=== PATIENT | male | born 1940 | race Caucasian/White ===

== ENCOUNTER 2021-07-06 19:17 | Outpatient (NON) | payer OTHER, SELFPAY ==
[2021-07-06 19:31] LABS: Add Urine Microscopic? NO; Appearance Urine Clear (Clear); Bilirubin Urine Negative (Negative); Blood Urine Negative (Negative); Color Urine Light Yellow (Yellow); Glucose Urine UA Negative (Negative); Ketones Urine Negative (Negative); Leukocyte Esterase Ur Negative LEU/UL (Negative); Nitrate Urine Negative (Negative); Protein Urine Negative (Negative); Urobilinogen Urine 0.2 mg/dL (0.2-1.0)
== END 2021-07-06 19:18 | disposition home or self-care (01) ==
LOC: CHSLAB 19:21
PROVIDERS: Nurse Practitioner Family; PCP Family Medicine; Visit Provider Family Medicine
DX: R30.0 Dysuria (principal)
CPT/HCPCS: 81003

== ENCOUNTER 2023-02-03 18:04 | Inpatient (IN) | payer OTHER, SELFPAY ==
[2023-02-03] VITALS (11 sets, daily range): BP systolic 70–138; BP diastolic 43–68; PULSE 72–149; RESP 20–35; TEMP 36.7–38.5; O2SAT 82–100; BMI 19.1
--- NOTE | ~2023-02-03 | XR_ITS ---
Portable chest x-ray Comparison: 02/03/2023 Clinical History: Aspiration Findings: There is bibasilar airspace disease. Probable minimal left pleural effusion. Cardiomedias tinal silhouette is stable. Bones and soft tissues are unremarkable. Impression: Bibasilar airspace consolidation. Correlate for atelectasis versus pneumonia. Probable minimal left pleural effusion. Reviewed, dictated and finalized at [facility]. Impression: Bibasilar airspace consolidation. Correlate for atelectasis versus pneumonia. Probable minimal left pleural effusion.
--- NOTE | ~2023-02-03 | XR_ITS ---
Portable chest x-ray Comparison: 06/30/2009 Clinical History: Pneumonia Findings: Lungs are clear, without focal consolidation or pleural effusion. Cardiomediastinal silho uette is stable. Bones and soft tissues are unremarkable. Impression: Clear lungs. Reviewed, dictated and finalized at location . Impression: Clear lungs.
--- NOTE | 2023-02-03 18:05 | ECG_ITS ---
Measurements Intervals [place] Rate: 141 P: 76 SD: 144 QRS: -26 QRSD: 94 T: 92 QT: 328 QTc: 503 Interpretive Statements SINUS OR ECTOPIC ATRIAL TACHYCARDIA LOW QRS VOLTAGE IN PRECORDIAL LEADS NONSPECIFIC ST & T-WAVE ABNORMALITY- DIFFUSE LEADS BASELINE ARTIFACT- I, II, III, AVR, AVL, AVF, V2-V6 ABNORMAL ECG NO PREVIOUS ECG AVAILABLE FOR COMPARISON Electronically Signed On 02-03-2023 18:41:24 CDT by Gregory Chavez D.O.
[2023-02-03] MEDS: IPRATROPIUM 0.5 MG/ALBUTEROL SULFATE 2.5 MG AMPUL.NEB 3 ML INHALATION (18:20)
--- NOTE | 2023-02-03 18:21 | ED.SOB ---
HPI - SOB/Dyspnea General Chief Complaint: Upper Respiratory Infection Stated Complaint: SOB Time Seen by Provider: 02/03/23 18:09 Source: patient Mode of arrival: ambulatory Limitations: no limitations History of Present Illness HPI Narrative: 82-year-old male, half-way resident a history of cognitive impairment, mixed dyslipidemia, OCD presents to the ER via EMS with -- fever since today morning -- gurgling respiration which developed after he had supper. Questionable aspiration. -- Patient is nonverbal. -- hypotensive -- hypoxia with oxygen saturation 75% which improved with supplemental oxygen. MD elicited complaint: shortness of breath Pertinent past history: congestive heart failure Onset (ago): day(s) ( Since this morning.) Context: choking/aspiration Timing: constant Severity: moderate Exacerbating factors: nothing and warm air Relieving factors: nothing Related Data Home oxygen amount: other ( 7 L) Home Medications Medication Instructions Recorded Confirmed acetaminophen 650 mg 650 mg PO .Q6hrs 05/04/21 02/03/23 tablet,extended release (Tylenol 8 Hour) Ocusoft Eyelid Cleansing Pads 02/03/23 02/03/23 atorvastatin 40 mg tablet 40 mg PO HS 02/03/23 02/03/23 azelastine 0.05 % eye drops 2 drp ophthalmic (eye) BID 02/03/23 02/03/23 clindamycin HCl 150 mg capsule 150 mg PO TID 02/03/23 02/03/23 famotidine 40 mg tablet 40 mg PO DAILY 02/03/23 02/03/23 melatonin 5 mg capsule 5 mg PO HS PRN insomnia 02/03/23 02/03/23 multivit with min-folic 1 tablet PO DAILY 02/03/23 02/03/23 acid-lutein 200 mcg-137.5 mcg chewable tablet (Adult Multivitamin (w-lutein)) polyvinyl alcohol-povidone 0.5 1 drp EACH EYE BID PRN Itching 02/03/23 02/03/23 %-0.6 % eye drops (Clear Eyes Natural Tears) tamsulosin 0.4 mg capsule 0.4 mg PO HS 02/03/23 02/03/23 Allergies Allergy/AdvReac Type Severity Reaction Status Date / Time No Known Allergies Allergy Verified 01/31/23 07:36 Review of Systems Review of Systems: ROS unobtainable: Yes unobtainable due to mental status Constitutional: Constitutional: Reports as per HPI, Reports no additional constitutional complaints and Reports fever(s) Eyes: Eyes: Reports as per HPI and Reports no additional eye complaints ENT: Reports system reviewed and no additional complaints, except as documented and Reports as per HPI Cardiovascular: Cardiovascular: Reports as per HPI and Reports no additional cardiovascular complaints Respiratory: Respiratory: Reports as per HPI, Reports chest congestion and Reports cough Gastrointestinal: Gastrointestinal: Reports as per HPI and Reports no additional gastrointestinal complaints Genitourinary: Genitourinary: Reports no additional male genitourinary complaints and Reports as per HPI Musculoskeletal: Musculoskeletal: Reports no additional musculoskeletal complaints and Reports as per HPI Integumentary/Breasts: Skin/Breast: Reports system reviewed and no additional complaints, except as docu and Reports as per HPI Psychiatric: Psychiatric: Reports no additional psychiatric complaints and Reports as per HPI Endocrine: Endocrine: Reports no additional endocrine complaints and Reports as per HPI Hematologic/Lymphatic: Hematologic/Lymphatic: Reports no additional hematologic/lymphatic complaints Allergic/Immunologic: Allergic/Immunologic: Reports no additional allergic/immunologic complaints and Reports as per HPI PMFSH Past Medical History Medical History Mixed hyperlipidemia OCD (obsessive compulsive disorder) Social History Social History Smoking status: Never smoker Exam Const: General: ill appearing Nutritional Appearance: well nourished Limitations: altered mental status HENMT: Head: normal to inspection Ears: external ears normal Face/Nose/Sinus: Normal external nose present Face and sinus: normal faci
[2023-02-03 19:08] LABS: Base Excess ABG -4.2 mmol/L (0-2); HCO3 ABG 24.5 mmol/L (23-29); Oxygen Content ABG 12.7 %vol (16.0-22.0); Oxygen Saturation ABG 75.9 % (95-97); Oxyhemoglobin 75.3 % (94-100); PCO2 ABG 63.3 mmHg (35-45); pH ABG 7.21 (7.35-7.45)
[2023-02-03 19:28] LABS: Hematocrit 37.3 % (37.0-46.0); Hemoglobin 12.4 g/dL (12.4-15.3); Mean Corpuscular HGB Conc 33.2 g/dL (32.0-36.0); Mean Corpuscular Hemoglobin 33.2 pg (27.0-31.0); Mean Corpuscular Volume 99.7 fL (78.0-102.0); Mean Platelet Volume 10.3 fl (8.7-11.0); Platelet Count Result 174 K/mm3 (150-420); Red Blood Count 3.74 M/mm3 (4.70-6.10); Red Cell Distribution Width 14.2 % (11.6-14.4)
[2023-02-03 19:31] LABS: Device NASAL CANNULA; Modified Allen's Test Pass; Site Drawn RIGHT RADIAL
[2023-02-03 19:35] LABS: Partial Thromboplastin Time 28.6 SEC (23.90-30.70); Prothrombin Time 11.3 Seconds (9.50-12.10)
[2023-02-03 19:44] LABS: Lactic Acid Reflex 4.5 mmol/L (0.4-2.0)
[2023-02-03 19:45] LABS: Alanine Aminotransferase 35 U/L (16-63); Albumin Level 3.2 g/dL (3.4-5.0); Alkaline Phosphatase 114 U/L (46-116); Anion Gap 10 mmol/L (8-16); Aspartate Amino Transferase 22 U/L (15-37); Blood Urea Nitrogen 27 mg/dL (7-18); Calcium 8.3 mg/dL (8.5-10.1); Carbon Dioxide 27 mmol/L (21-32); Chloride 106 mmol/L (98-108); Estimated CRCL calculation 33 ml/min; Estimated Glomerular Filt Rate > 60; Glucose 133 mg/dL (70-99); Lipase 32 U/L (16-77); NT Pro B Type Natriuretic Pept 655 pg/mL (0-450); Osmolality Calculated 303 mOsm/kg (285-295); Potassium 3.4 mmol/L (3.5-5.1); Sodium 143 mmol/L (136-145); Thyroid Stimulating Hormone 1.81 uIU/mL (0.36-3.74)
--- NOTE | 2023-02-03 19:48 | PC.NURSE ---
1914-report from denisse [place]. functional tester typewriters arrives to bedside. pt noted to be right lateral lying, audible gurgling, nasal cannula pulled down to chin, o2 sat 81%. o2 applied appropriately with active improvement to o2 sat. functional tester typewriters instructed pt to cough, pt follows commands and is suctioned with noting thick white/seaman sputum. pt noted to have soiled depend. pt cleaned, bedding changed, lights dimmed. pt appears less agitated and more comfortable. physician made aware.
[2023-02-03 19:59] LABS: Troponin I 117.6 ng/L (0.00-60.4)
[2023-02-03] MEDS: CEFEPIME 2 GM/NS 50 ML 2 GM/50 ML BAG IVPB (20:00)
[2023-02-03 20:18] LABS: Influenza A QL RT-PCR Negative (Negative); Influenza B QL RT-PCR Negative (Negative); RSV RNA, RT-PCR Negative (Negative); SARS-CoV-2 RNA PCR Negative (Negative)
[2023-02-03 20:34] LABS: Neutrophils Percent Manual 77 % (46-73); Total Cells Counted 100
[2023-02-03 20:35] LABS: Band Neutrophils Percent 6 % (0-6); Lymphocytes Absolute Manual 1.56 K/mm3 (1.1-4.5); Lymphocytes Percent Manual 6 % (18-44); Metamyelocytes Percent 1 %; Monocytes Percent Manual 10 % (3-9); Neutrophils Absolute Manual 21.58 K/mm3 (1.3-6.7); Platelet Estimate Adequate (Adequate); Schistocytes None Seen (NORMAL)
[2023-02-03] MEDS: VANCOMYCIN 1,250 MG/NS 250 ML 1,250 MG/250 ML BAG 166.67 MG IVPB (21:07)
[2023-02-03] MEDS: LACTATED RINGERS 1,000 ML 999 ML IV CONT (21:11)
--- NOTE | 2023-02-03 21:39 | P.PNCROSS_ITS ---
Event Note Event Note Event Note: Received notification from ER Physician that patient will be admitted for comfo rt care after NSTEMI, septic shock and likely aspiration. Admit orders/comfort care orders placed. Patient will be managed by ER Physician until 0700 on 02/04/2023 at which time I will take over and see patient in house.
--- NOTE | 2023-02-03 22:10 | ADMGEN ---
This patient, Enrique Benítez, was admitted to 2nd Floor Room 204-2. Patient/family oriented to hospital policies and general routines including ID bracelet, bed and alarms, visiting hours, pain management, procedures, bathroom and other care routines, personal items, smoking policy, room service/diet, and visiting hours. Information on how to activate the Rapid Response Team has been discussed. Patient/Family are encouraged to report perceived risks to care and to ask questions if they do not understand what they are told or what they should do.
--- NOTE | 2023-02-03 22:20 | PC.NURSE ---
PT noted to be anxious, with repeated verbalizations, A&Ox1 per baseline, 18g IV site to RFA was discontinued, pt pulled out during transfer from [facility] [place] to bed, new IV site initiated 22 gauge to [facility].
[2023-02-03 22:22] LABS: Reflex Lactic Acid Yes or No Add Lactic
--- NOTE | 2023-02-03 23:10 | PC.NURSE ---
Patient was admitted at 2210. Patient was anxious, and concerned about missing his eye drops and his pill that he has every night. Medication was ordered and given. Patient has IV morphine and IV Lorazepam available as needed.
[2023-02-03] MEDS: MORPHINE SULFATE (*CRX) 2 MG/ML INJ IV PUSH (23:24)
[2023-02-03] MEDS: LORazepam INJ (*CRX) 2 MG/ML VIAL IV PUSH (23:24)
[2023-02-03] MEDS: ARTIFICIAL TEARS OPHTH SOLN 15 ML BOTTLE 1 DROP EACH EYE (23:25)
[2023-02-03] MEDS: ACETAMINOPHEN 500 MG TABLET PO (23:27)
[2023-02-04] VITALS (9 sets, daily range): BP systolic 70–88; BP diastolic 44–54; PULSE 70–78; RESP 18–20; TEMP 36.6–37.4; O2SAT 90–94
[2023-02-04] MEDS: MORPHINE SULFATE (*CRX) 2 MG/ML INJ IV PUSH (03:06)
[2023-02-04] MEDS: ATROPINE SULFATE 1% OPHTH SOLN 5 ML BOTTLE 1 DROP SUBLINGUAL (03:08)
[2023-02-04] MEDS: LORazepam INJ (*CRX) 2 MG/ML VIAL IV PUSH ×2 (05:53→21:18)
[2023-02-04 06:57] LABS: Lactic Acid 2.2 mmol/L (0.4-2.0)
--- NOTE | 2023-02-04 07:32 | PM.IMHP ---
H&P: HPI History of Present Illness Date/Time: 02/04/23 07:32 Chief Complaint: aspiration Narrative: 82-year-old Male patient [facility] after he had an event at the dinner table resulting in aspiration of large amount of emesis with altered level of consciousness. Patient found to be altered in the emergency department nearly unconscious initially presenting with heart rate in the 140s and blood pressure in the 70s systolic. Patient was 75% saturations on room air. White blood cell count [id number] and lactic acid 4 5. Patient received IV fluids and IV antibiotics in the emergency department. Decision was made to admit after healthcare power of commonwealth attorney was contacted and patient made comfort care expected to pass away as result this event. Patient's troponin was noted to be elevated the ER. Additional labs and invasive interventions or withheld except reflex lactic acid had not been canceled. This was drawn this morning and was resulted at 2.2 showing a significant improvement. Patient did have to receive a single dose of morphine and a single dose of Ativan overnight due to significant agitation /anxiety. Nursing staff stated that patient actually ambulated around his a after being admitted from the ER. He was insistent on taking Tylenol and eyedrops that he takes every night. Patient's blood pressure remained low and patient remained on oxygen overnight. Large amount of suctioning was necessary to keep patient from gurgling respirations. atropine drops and later scopolamine patch applied for control of secretions. Review of Systems Review of Systems: ROS unobtainable: Yes unobtainable due to medical condition and unobtainable due to mental status PMF Past Medical History Medical History Mixed hyperlipidemia OCD (obsessive compulsive disorder) Social History Social History Smoking status: Never smoker Second hand tobacco smoke exposure: No Alcohol intake: never Substance use: never Substance use type: does not use Spiritual care concerns: No Meds Home Medications and Allergies Home Medications Medication Instructions Recorded Confirmed Type acetaminophen 650 mg 650 mg PO .Q6hrs 05/04/21 02/03/23 History tablet,extended release (Tylenol 8 Hour) Ocusoft Eyelid Cleansing Pads 02/03/23 02/03/23 History atorvastatin 40 mg tablet 40 mg PO HS 02/03/23 02/03/23 History azelastine 0.05 % eye drops 2 drp ophthalmic (eye) BID 02/03/23 02/03/23 History clindamycin HCl 150 mg capsule 150 mg PO TID 02/03/23 02/03/23 History famotidine 40 mg tablet 40 mg PO DAILY 02/03/23 02/03/23 History melatonin 5 mg capsule 5 mg PO HS PRN insomnia 02/03/23 02/03/23 History multivit with min-folic 1 tablet PO DAILY 02/03/23 02/03/23 History acid-lutein 200 mcg-137.5 mcg chewable tablet (Adult Multivitamin (w-lutein)) polyvinyl alcohol-povidone 0.5 1 drp EACH EYE BID PRN Itching 02/03/23 02/03/23 History %-0.6 % eye drops (Clear Eyes Natural Tears) tamsulosin 0.4 mg capsule 0.4 mg PO HS 02/03/23 02/03/23 History Allergies Allergy/AdvReac Type Severity Reaction Status Date / Time No Known Allergies Allergy Verified 01/31/23 07:36 Vital Signs Vital Signs - 24 hr 02/03/23 18:07 02/03/23 18:21 02/03/23 18:40 Temperature 38.5 C H Pulse Rate 120 H 133 H 149 H Respiratory Rate 31 H 35 H 29 H Blood Pressure 138/68 Pulse Oximetry 93 93 92 Oxygen Delivery Non-Rebreather Mask Oxygen Flow Rate 7 7 6 02/03/23 18:57 02/03/23 19:08 02/03/23 20:00 Temperature 38.0 C H Pulse Rate 148 H 140 H 130 H Respiratory Rate 30 H 22 H 24 H Blood Pressure 105/55 L 94/46 L Pulse Oximetry 82 L 91 96 Oxygen Delivery Nasal Cannula Nasal Cannula Nasal Cannula Oxygen Flow Rate 6 6 6 02/03/23 20:30 02/03/23 21:00 02/03/23 21:30 Temperature 36.7 C Pulse Rate 103 H
[2023-02-04] MEDS: SCOPOLAMINE 1.5 MG PATCH TRANSDERM (08:32)
--- NOTE | 2023-02-04 08:35 | PC.NURSE ---
Patient continues to be sedated and comfortable. Suction performed x 3 this shift already, with thick, seaman sputum obtained. Patient continues to have audible coarse lung sounds. Scopalamine patch applied behind R ear. No s/s distress noted.
--- NOTE | 2023-02-04 09:59 | PC.NURSE ---
Full bed bath and oral care administered to patient. Patient arousable to verbal, but is not responding verbally in return. No s/s distress noted. Linens changed. Patient positioned on R side with heels elevated for comfort.
--- NOTE | 2023-02-04 14:17 | PC.NURSE ---
Patient awake and opening his eyes. O2 decreased to 3L n/c and patient SPO2 at 96%. Patient calm and comfortable with no s/s distress at this time.
--- NOTE | 2023-02-04 15:03 | PC.NURSE ---
Patient alert to self per baseline. Patient awake and asking for food. Current diet is NPO, FI[employer]OTE[employer]IST to be on unit shortly. Will request diet change. Current SPO2 94% on 3L n/c.
[2023-02-04 16:40] LABS: Basophils Absolute Auto 0.07 K/mm3 (0.00-0.10); Basophils Percent Auto 0.4 % (0.0-1.0); Eosinophils Absolute Auto 0.02 K/mm3 (0.02-0.50); Eosinophils Percent Auto 0.1 % (1.0-6.0); Hemoglobin 10.9 g/dL (12.4-15.3); Immature Granulocyte Absolute 0.07 K/mm3 (0.00-0.00); Immature Granulocyte Percent A 0.4 % (0.0-0.0); Lymphocytes Absolute Auto 1.18 K/mm3 (1.10-4.50); Lymphocytes Percent Auto 6.4 % (18.0-42.0); Mean Corpuscular HGB Conc 34.1 g/dL (32.0-36.0); Mean Corpuscular Hemoglobin 33.5 pg (27.0-31.0); Mean Corpuscular Volume 98.5 fL (78.0-102.0); Mean Platelet Volume 9.9 fl (8.7-11.0); Monocytes Absolute Auto 2.13 K/mm3 (0.10-0.90); Monocytes Percent Auto 11.5 % (2.0-11.0); Neutrophils Absolute Auto 15.1 K/mm3 (1.7-7.2); Neutrophils Percent Auto 81.2 % (50.0-70.0); Platelet Count Result 143 K/mm3 (150-420); Red Blood Count 3.25 M/mm3 (4.70-6.10); Red Cell Distribution Width 14.6 % (11.6-14.4); White Blood Count 18.6 K/mm3 (4.8-10.8)
[2023-02-04 16:53] LABS: Alanine Aminotransferase 36 U/L (16-63); Albumin Level 2.7 g/dL (3.4-5.0); Alkaline Phosphatase 87 U/L (46-116); Anion Gap 7 mmol/L (8-16); Aspartate Amino Transferase 34 U/L (15-37); Bilirubin,Total 0.8 mg/dL (0.00-1.00); Blood Urea Nitrogen 44 mg/dL (7-18); Calcium 8.5 mg/dL (8.5-10.1); Carbon Dioxide 28 mmol/L (21-32); Chloride 107 mmol/L (98-108); Estimated CRCL calculation 36 ml/min; Estimated Glomerular Filt Rate > 60; Glucose 89 mg/dL (70-99); Osmolality Calculated 304 mOsm/kg (285-295); Potassium 4.3 mmol/L (3.5-5.1); Sodium 142 mmol/L (136-145); Total Protein 6.3 g/dL (6.4-8.2)
[2023-02-04 16:58] LABS: Troponin I 177.8 ng/L (0.00-60.4)
[2023-02-04] MEDS: metroNIDAZOLE 250 MG TABLET 500 MG PO ×2 (17:30→21:19)
[2023-02-04] MEDS: SODIUM CHLORIDE 0.9% IV 1,000 ML 75 ML IV CONT (17:30)
[2023-02-04] MEDS: CEFEPIME 2 GM/NS 50 ML 2 GM/50 ML BAG IVPB (17:30)
[2023-02-04] MEDS: IPRATROPIUM 0.5 MG/ALBUTEROL SULFATE 2.5 MG AMPUL.NEB 3 ML INHALATION ×2 (17:58→23:43)
[2023-02-04] MEDS: ARTIFICIAL TEARS OPHTH SOLN 15 ML BOTTLE 1 DROP EACH EYE (21:19)
[2023-02-04] MEDS: ATORVASTATIN 40 MG TABLET PO (21:19)
[2023-02-04] MEDS: MELATONIN 5 MG TABLET PO (21:19)
[2023-02-04] MEDS: TAMSULOSIN HCL 0.4 MG CAPSULE PO (21:19)
[2023-02-05] VITALS (12 sets, daily range): BP systolic 101–122; BP diastolic 52–64; PULSE 81–118; RESP 16–24; TEMP 36.6–37.3; O2SAT 92–96
[2023-02-05] MEDS: IPRATROPIUM 0.5 MG/ALBUTEROL SULFATE 2.5 MG AMPUL.NEB 3 ML INHALATION ×4 (05:14→23:19)
[2023-02-05 05:21] LABS: Basophils Absolute Auto 0.07 K/mm3 (0.00-0.10); Basophils Percent Auto 0.4 % (0.0-1.0); Eosinophils Absolute Auto 0.17 K/mm3 (0.02-0.50); Hemoglobin 10.4 g/dL (12.4-15.3); Immature Granulocyte Absolute 0.12 K/mm3 (0.00-0.00); Immature Granulocyte Percent A 0.7 % (0.0-0.0); Lymphocytes Absolute Auto 1.41 K/mm3 (1.10-4.50); Lymphocytes Percent Auto 8.6 % (18.0-42.0); Mean Corpuscular HGB Conc 33.5 g/dL (32.0-36.0); Mean Corpuscular Hemoglobin 32.9 pg (27.0-31.0); Mean Corpuscular Volume 98.1 fL (78.0-102.0); Mean Platelet Volume 9.7 fl (8.7-11.0); Monocytes Percent Auto 9.1 % (2.0-11.0); Neutrophils Absolute Auto 13.1 K/mm3 (1.7-7.2); Neutrophils Percent Auto 80.2 % (50.0-70.0); Platelet Count Result 155 K/mm3 (150-420); Red Blood Count 3.16 M/mm3 (4.70-6.10); Red Cell Distribution Width 14.6 % (11.6-14.4); White Blood Count 16.4 K/mm3 (4.8-10.8)
[2023-02-05] MEDS: metroNIDAZOLE 250 MG TABLET 500 MG PO ×3 (05:27→21:10)
[2023-02-05] MEDS: CEFEPIME 2 GM/NS 50 ML 2 GM/50 ML BAG IVPB ×2 (05:29→17:42)
[2023-02-05 05:30] LABS: Anion Gap 4 mmol/L (8-16); Blood Urea Nitrogen 42 mg/dL (7-18); Calcium 8.3 mg/dL (8.5-10.1); Carbon Dioxide 28 mmol/L (21-32); Chloride 109 mmol/L (98-108); Estimated CRCL calculation 41 ml/min; Estimated Glomerular Filt Rate > 60; Glucose 90 mg/dL (70-99); Osmolality Calculated 302 mOsm/kg (285-295); Sodium 141 mmol/L (136-145)
[2023-02-05] MEDS: LORazepam INJ (*CRX) 2 MG/ML VIAL IV PUSH (05:40)
[2023-02-05] MEDS: SODIUM CHLORIDE 0.9% IV 1,000 ML 75 ML IV CONT ×2 (09:07→23:33)
--- NOTE | 2023-02-05 09:09 | PC.NURSE ---
Patient sedated and unable to take am meds at this time.
--- NOTE | 2023-02-05 12:14 | PM.IMPN ---
Progress Note: A&P Assessment and Plan (1) Septic shock: Code(s): A41.9 - Sepsis, unspecified organism; R65.21 - Severe sepsis with septic shock Status: Acute (2) Aspiration into airway: Code(s): T17.908A - Unspecified foreign body in respiratory tract, part unspecified causing other injury, initial encounter Status: Acute (3) Acute respiratory failure with hypoxia and hypercapnia: Code(s): J96.01 - Acute respiratory failure with hypoxia; J96.02 - Acute respiratory failure with hypercapnia Status: Acute (4) Non-ST elevated myocardial infarction (non-STEMI): Code(s): I21.4 - Non-ST elevation (NSTEMI) myocardial infarction Status: Acute Plan Treating sepsis/aspiration with cefepime and metronidazole, oxygen, neb treatments. Vitals stable today with improved blood pressure. Initially patient admitted for comfort care only but he rebounded well, woke up and was acting near normal so focus shifted to treating acute medical need of aspiration/hypoxia. Spoke with patient's PCP (who was working as ER doctor today) who stated that patient is more confused than usual. Dr. Browne recommended continuing medical care but if patient decompensates, transition back to comfort/end of life care without more invasive management. Time Spent With Patient Time with patient: Greater than 35 minutes Subjective Date/time seen: 02/05/23 12:14 Interval history: Nursing staff stated that patient was anxious and agitated overnight. They eventually gave IV Ativan but they had been holding off because they felt the dose was too high. Nursing requested that Ativan dose be decreased. Patient is awake attempting to feed himself lunch the most a bit spills down the front of him peer he is talking but hard to understand what he is trying to say. Patient still has significant cough rhonchi and dyspnea requiring oxygen. Review of Systems Review of Systems: ROS unobtainable: Yes unobtainable due to mental status Exam Narrative: GENERAL: acutely ill appearing elderly male patient Awake but apparently confused with mild tachypnea, dyspnea and oxygen needs HEENT: Pupils are equally equal round and reactive to light. Poor oral hygiene NECK: The patient has no noted JVD. No adenopathy is appreciated. CHEST/LUNGS: Lungs diminished with rhonchi throughout. Patient with deep cough every few minutes. HEART: The patient has a regular rate and rhythm. No murmurs, rubs, or gallops are appreciated. Distal pulses are 2+. ABDOMEN: The patient's abdomen is soft, nontender, and nondistended. Bowel sounds are positive. EXTREMITIES: The patient has no peripheral edema. There is no focal long bone tenderness or deformity. SKIN: The patient's skin is warm and dry, without rashes or lesions. PSYCHIATRIC: unable to evaluate due to altered mental status NEUROLOGIC: awake, appears confused, Moves all extremities well. Will talk but difficult to understand what he is asking for. He is answering yes/no questions seemingly appropriately Objective Data Vital Signs Vital Signs: Vital Signs - 24 hr 02/04/23 16:00 02/04/23 15:49 02/04/23 20:00 Temperature 36.6 C Pulse Rate 70 70 70 Respiratory Rate 18 18 18 Blood Pressure 86/49 L Pulse Oximetry 94 94 94 Oxygen Delivery Nasal Cannula Nasal Cannula Nasal Cannula Oxygen Flow Rate 3 3 4 02/04/23 23:45 02/04/23 23:49 02/04/23 23:46 Temperature 37.4 C Pulse Rate 71 72 73 Respiratory Rate 20 20 20 Blood Pressure 87/54 L Pulse Oximetry 94 94 92 Oxygen Delivery Nasal Cannula Oxygen Flow Rate 4 4 4 02/05/23 05:15 02/05/23 05:23 02/05/23 07:56 Temperature 36.6 C Pulse Rate 98 95 81 Respiratory Rate 20 20 18 Blood Pressure 101/52 L Pulse Oximetry 95 95 96 Oxygen Delivery Nasal Cannula Oxygen Flow Rate 4 4 4 Intake/Output Intake/Output: Intake & Output 02/02/23 02/03/23 02/04/23 02/05/23 23:59 23:59 23:59 23:59 Intake Total 4295 [id number]
--- NOTE | 2023-02-05 13:49 | PC.NURSE ---
Patient awake for lunch. Post lunch, patient cleaned up, and bed changed. Patient resting on R side at this time.
--- NOTE | 2023-02-05 19:20 | PC.NURSE ---
Pt noted with food pocketed in mouth, oral care given.
[2023-02-05] MEDS: ATORVASTATIN 40 MG TABLET PO (21:10)
[2023-02-05] MEDS: LORazepam INJ (*CRX) 2 MG/ML VIAL 1 MG IV PUSH (21:10)
[2023-02-05] MEDS: TAMSULOSIN HCL 0.4 MG CAPSULE PO (21:10)
[2023-02-05] MEDS: MORPHINE SULFATE (*CRX) 2 MG/ML INJ IV PUSH (23:36)
[2023-02-06] VITALS (7 sets, daily range): BP systolic 116–121; BP diastolic 68–71; PULSE 80–106; RESP 16–22; TEMP 36.8–37.4; O2SAT 92–98
[2023-02-06] MEDS: LORazepam INJ (*CRX) 2 MG/ML VIAL 1 MG IV PUSH ×3 (03:06→11:23)
[2023-02-06] MEDS: IPRATROPIUM 0.5 MG/ALBUTEROL SULFATE 2.5 MG AMPUL.NEB 3 ML INHALATION ×2 (04:59→11:01)
[2023-02-06 05:25] LABS: Basophils Absolute Auto 0.04 K/mm3 (0.00-0.10); Basophils Percent Auto 0.3 % (0.0-1.0); Eosinophils Absolute Auto 0.38 K/mm3 (0.02-0.50); Hematocrit 29.5 % (37.0-46.0); Hemoglobin 9.8 g/dL (12.4-15.3); Immature Granulocyte Absolute 0.09 K/mm3 (0.00-0.00); Immature Granulocyte Percent A 0.7 % (0.0-0.0); Lymphocytes Absolute Auto 1.29 K/mm3 (1.10-4.50); Lymphocytes Percent Auto 10.2 % (18.0-42.0); Mean Corpuscular HGB Conc 33.2 g/dL (32.0-36.0); Mean Corpuscular Hemoglobin 32.8 pg (27.0-31.0); Mean Corpuscular Volume 98.7 fL (78.0-102.0); Mean Platelet Volume 9.7 fl (8.7-11.0); Monocytes Absolute Auto 1.62 K/mm3 (0.10-0.90); Monocytes Percent Auto 12.8 % (2.0-11.0); Neutrophils Absolute Auto 9.2 K/mm3 (1.7-7.2); Platelet Count Result 148 K/mm3 (150-420); Red Blood Count 2.99 M/mm3 (4.70-6.10); Red Cell Distribution Width 14.6 % (11.6-14.4); White Blood Count 12.6 K/mm3 (4.8-10.8)
[2023-02-06] MEDS: CEFEPIME 2 GM/NS 50 ML 2 GM/50 ML BAG IVPB (05:25)
[2023-02-06] MEDS: metroNIDAZOLE 250 MG TABLET 500 MG PO (05:26)
[2023-02-06 05:39] LABS: Anion Gap 6 mmol/L (8-16); Blood Urea Nitrogen 30 mg/dL (7-18); Carbon Dioxide 27 mmol/L (21-32); Chloride 109 mmol/L (98-108); Estimated CRCL calculation 49 ml/min; Estimated Glomerular Filt Rate > 60; Glucose 90 mg/dL (70-99); Osmolality Calculated 300 mOsm/kg (285-295); Potassium 3.9 mmol/L (3.5-5.1); Sodium 142 mmol/L (136-145)
[2023-02-06] MEDS: ATROPINE SULFATE 1% OPHTH SOLN 5 ML BOTTLE 1 DROP SUBLINGUAL (08:35)
[2023-02-06] MEDS: ARTIFICIAL TEARS OPHTH SOLN 15 ML BOTTLE 1 DROP EACH EYE (08:38)
[2023-02-06] MEDS: FUROSEMIDE INJ 40 MG/4 ML VIAL IV PUSH (11:09)
--- NOTE | 2023-02-06 13:35 | PM.DS ---
DS: Admitting Diagnosis Discharge Date 02/06/2023 Admitting Diagnosis end of life care acute hypercapnic respiratory failure NSTEMI septic shock aspiration into airway DS: Discharge Diagnosis Discharge Diagnosis (1) End of life care: Code(s): Z51.5 - Encounter for palliative care Status: Acute (2) Septic shock: Code(s): A41.9 - Sepsis, unspecified organism; R65.21 - Severe sepsis with septic shock Status: Acute (3) Acute respiratory failure with hypoxia and hypercapnia: Code(s): J96.01 - Acute respiratory failure with hypoxia; J96.02 - Acute respiratory failure with hypercapnia Status: Acute (4) Aspiration into airway: Code(s): T17.908A - Unspecified foreign body in respiratory tract, part unspecified causing other injury, initial encounter Status: Acute (5) Non-ST elevated myocardial infarction (non-STEMI): Code(s): I21.4 - Non-ST elevation (NSTEMI) myocardial infarction Status: Acute Plan discharge back to [facility] on comfort care DS: Summary Hospital Course Reason for hospitalization: Patient was admitted to the hospital after suffering large aspiration and NSTEMI, exhibiting septic shock with hypotension, significant lactic acid elevation and altered mental status. Patient was admitted for end of life comfort care Hospital Course: patient was initially admitted overnight by the ER physician after determination that patient would be kept on comfort care anticipating terminal prognosis. However, upon arrival to the patient woke up and became ambulatory requesting/demanding his nighttime medication including Tylenol and eyedrops. Patient has a long history of OCD. He ventrally received a dose of pain medication and dose anti anxiety medication overnight. He had a large amount of airway secretions that were suctioned. Following morning patient appeared unconscious upon my initial evaluation. However, throughout the day patient woke and began to eat drink and listen to his a.m. [employer] radio as per usual. Nursing staff believed that patient was returning to his baseline state of health except for some respiratory concerns requiring oxygen and suctioning. Labs were rechecked an most values had significantly improved. At this time conservative medical management began with IV antibiotics and IV fluids. Over the course of the next 2 days patient slowly began to become more confused less alert and acting less like his usual self. Consultation was again obtained with patient's healthcare power of energy attorney and decision was made to transition patient back to true comfort care measures. His power of energy attorney wanted [facility] the [facility] since he has lived there for a very long time and all of the staff has come to love him. I spoke with nursing staff and they were able to provide comfort care without utilizing hospice. Prescriptions for medications were written. Scopolamine patch was placed as this did better than the atropine drops for controlling secretions. Patient was transported by EMS back to the nursing facility for end of life care. Status at Discharge Cognitive/behavioral status at discharge: drowsy, confused, comfortable appearing Functional status at discharge: bed bound Overall status at discharge: other ( terminal prognosis) Time Spent with Patient Time attestation: Total time spent providing and/or coordinating discharge services: 75 minutes Time spent: Greater than 30 minutes Specific discharge activities: arranging comfort care including prescriptions for return to nursing facility were patient has lived for a long time Exam Narrative: GENERAL: acutely ill appearing elderly male patient drowsy, comfortable appearing with harsh sounding periodic cough HEENT: Pupils are equally constricted and sluggish to light. NECK: The patient has no noted JVD. No adenopathy is appreciated. CHEST/LUNGS: Lungs diminished with rhonchi and rales H
== END 2023-02-06 14:30 | DRG 871 ==
LOC: CHSED 21:32 → CHS2ND 21:48
PROVIDERS: Nurse Practitioner; Admitting Provider Internal Medicine; Emergency Provider Internal Medicine Critical Care Medicine; PCP Family Medicine; Visit Provider Internal Medicine
DX: I21.4 Non-ST elevation (NSTEMI) myocardial infarction (principal); J96.02 Acute respiratory failure with hypercapnia; I50.9 Heart failure, unspecified; E78.2 Mixed hyperlipidemia; F42.9 Obsessive-compulsive disorder, unspecified; Z20.822 Contact with and (suspected) exposure to COVID-19; A41.9 Sepsis, unspecified organism; R65.21 Severe sepsis with septic shock; T17.908A Unspecified foreign body in respiratory tract, part unspecified causing other injury, initial encounter; Z51.5 Encounter for palliative care
CPT/HCPCS: 36415; 36600; 71045; 80048; 80053; 82805; 83605; 83690; 83880; 84443; 84484; 85025; 85610; 85730; 87040; 87637; 93005; 94640; 96365; 96367; 99285; A9270; J0692; J1940; J2060; J2270; J3370; J7030; J7120